=== PATIENT | female | born 1985 | race Caucasian/White ===

== ENCOUNTER → 2019-06-04 | Outpatient (REF) | payer OTHER | LOC: M LAB LCGH 13:34 | PROVIDERS: ATTEND Obstetrics & Gynecology | DX: Z12.4 Encounter for screening for malignant neoplasm of cervix (principal); Z01.419 Encounter for gynecological examination (general) (routine) without abnormal findings ==

== ENCOUNTER 2019-06-18 15:09 | Outpatient (RCR) | payer OTHER | END 2019-06-30 | LOC: M ST 15:09 | PROVIDERS: ATTEND Otolaryngology | DX: R49.0 Dysphonia (principal) ==

== ENCOUNTER → 2022-07-27 | Outpatient (CLI) | payer OTHER, MEDICAID | LOC: M LABSMTC 11:09 | PROVIDERS: ATTEND Anesthesiology | DX: Z01.812 Encounter for preprocedural laboratory examination (principal); Z11.52 Encounter for screening for COVID-19 ==

== ENCOUNTER 2022-07-31 07:12 | Day surgery (SDC) | payer OTHER, MEDICAID ==
[~2022-07-31] VITALS: Ht 172.7 cm; Wt 102.1 kg
[~2022-07-31 07:12] MED LIST: dexameTHASONE 4 MG/ML 1ML VIAL (J1100 PER 1MG) IV ONE
[2022-07-31] MEDS ORDERED: LR 1,000 ML IV SCH ×2 (07:30→09:30)
[2022-07-31] MEDS ORDERED: dexameTHASONE 4 MG/ML 1ML VIAL (J1100 PER 1MG) As Ordered ONE (08:08)
[2022-07-31] MEDS ORDERED: ONDANSETRON 4MG 2ML VIAL As Ordered ONE (08:08)
[2022-07-31] MEDS ORDERED: propofoL 200 MG/20 ML VIAL As Ordered ONE (08:08)
[2022-07-31] MEDS ORDERED: ROCURONIUM BROMIDE 50 MG/5 ML VIAL As Ordered ONE (08:08)
[2022-07-31] MEDS ORDERED: OXYMETAZOLINE 0.05% NASAL SPRAY (AFRIN) As Ordered ONE (08:09)
[2022-07-31] MEDS ORDERED: METHYLENE BLUE 0.5% (5MG/ML) 10 ML AMP (PROVAYBLUE) As Ordered ONE (08:09)
[2022-07-31] MEDS ORDERED: fentaNYL 100 MCG/2 ML INJECTION As Ordered ONE (08:10)
[2022-07-31] MEDS ORDERED: MIDAZOLAM INJ 2MG/2ML VIAL (J2250 PER 1MG) As Ordered ONE (08:10)
[2022-07-31] MEDS ORDERED: fentaNYL 100 MCG/2 ML INJECTION IV PRN (09:30)
[2022-07-31] MEDS ORDERED: ONDANSETRON 4MG 2ML VIAL IV PRN (09:30)
[2022-07-31] MEDS ORDERED: HYDROMORPHONE HCL 0.5 MG/ 0.5 ML SYRINGE (J1170 PER 1) IV PRN (09:30)
[2022-07-31] MEDS: oxyCODONE 5MG TAB PO PRN ×2 (10:02→10:33)
[2022-07-31 11:30] VITALS: BP 119/71
== END 2022-07-31 11:35 | disposition home or self-care (01) ==
LOC: M SDC 07:12
PROVIDERS: ATTEND Otolaryngology
DX: J35.01 Chronic tonsillitis (principal); Z91.013 Allergy to seafood; Z91.018 Allergy to other foods
CPT/HCPCS: 42826; 88302; J1100; J2250; J2405; J3010

== ENCOUNTER 2022-09-29 12:56 | Outpatient (RCR) | payer OTHER, MEDICAID | END 2022-09-30 | LOC: M ST 12:56 | PROVIDERS: ATTEND Otolaryngology | DX: J38.3 Other diseases of vocal cords (principal) ==

== ENCOUNTER 2022-10-13 11:00 | Outpatient (RCR) | payer OTHER, MEDICAID | END 2022-10-31 | LOC: M ST 11:00 | PROVIDERS: ATTEND Otolaryngology | DX: J38.3 Other diseases of vocal cords (principal) ==

== ENCOUNTER → 2023-06-01 | Outpatient (REF) | payer BC, MEDICAID | LOC: M LAB REF 09:38 | PROVIDERS: ATTEND Nurse Practitioner Family | DX: R30.0 Dysuria (principal) ==